=== PATIENT | female | born 1935 | race Caucasian/White ===

== ENCOUNTER → 2016-04-24 | Outpatient (CLI) | payer MEDICARE, BC ==
[~2016-04-24] MED LIST: CARV12.579; CLOP75TA19; FENO145T25; METF500T4; NEBI10TA2; SAVELLA; SOLI5TAB5; VALS320T11; VALTURNA; [UNRECOGNIZED DRUG - CODE]
--- NOTE | 2016-04-24 15:27 | RADRPT ---
PROCEDURE: Bilateral knee series CLINICAL INDICATION: PAIN TECHNIQUE: AP, lateral and sunrise views of both knees were obtained. COMPARISON: Right knee series 09/17/2008 FINDINGS: There are bilateral knee prosthesis present. There is no evidence of dislocation or loosening. The re are no acute fractures. No focal bony blastic or lytic lesions. No evidence of right or left kn ee joint effusions. IMPRESSION: Bilateral knee prosthesis in place without evidence of dislocation loosening or joint effusions. RPTAT:AAJJ Physician Sunshine Date Time Electronically viewed and signed by Ilya Peter Physician on 04/24/2016 15:26 BM/
--- NOTE | 2016-04-24 15:28 | RADRPT ---
PROCEDURE: Bilateral hip series CLINICAL INDICATION: PAIN TECHNIQUE: AP pelvis, AP and frog-leg views of both hips were obtained. COMPARISON: Pelvis and right hip series 03/24/2013 FINDINGS: Again noted is mild degenerative joint disease of both hips. No evidence of acute fractures or disl ocations. The bony mineralization is normal. No focal bony blastic or lytic lesions. The surgical clip in the left bony pelvis. There are vascular calcifications present. 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 RPTAT:AAJJ Physician Sunshine Date Time Electronically viewed and signed by Physician Sunshine on 04/24/2016 15:28 /
== END | disposition home or self-care (01) ==
LOC: HKI 14:21
PROVIDERS: ATTEND Orthopaedic Surgery
DX: M70.61 Trochanteric bursitis, right hip (principal); M70.62 Trochanteric bursitis, left hip; M25.551 Pain in right hip; M25.552 Pain in left hip; M51.36 Other intervertebral disc degeneration, lumbar region; M54.16 Radiculopathy, lumbar region; M48.06 Spinal stenosis, lumbar region; Z96.653 Presence of artificial knee joint, bilateral
CPT/HCPCS: 20610; 73523; 73562; G0463; J1030

== ENCOUNTER → 2016-05-01 | Outpatient (CLI) | payer MEDICARE, BC | END | disposition home or self-care (01) | LOC: HKI 14:21 | PROVIDERS: ATTEND Orthopaedic Surgery | DX: M70.61 Trochanteric bursitis, right hip (principal); M70.62 Trochanteric bursitis, left hip; M25.551 Pain in right hip; M25.552 Pain in left hip; M51.36 Other intervertebral disc degeneration, lumbar region; M54.16 Radiculopathy, lumbar region; M48.06 Spinal stenosis, lumbar region; Z96.653 Presence of artificial knee joint, bilateral | CPT/HCPCS: 20610; G0463 ==